=== PATIENT | female | born 1970 | race Caucasian/White ===

== ENCOUNTER 2017-02-17 12:32 | Emergency (ER) | payer SELFPAY ==
[2017-02-17 12:57] VITALS: BP 106/68
--- NOTE | 2017-02-17 13:37 | CR ---
EXAMINATION: Left knee HISTORY: Pain COMPARISON: None TECHNIQUE: 3 views FINDINGS: There is no acute osseous abnormality, dislocation, or fracture. There is a trace joint spa ce narrowing within the lateral compartment and patellofemoral compartment. There is a moderate joint effusion. Early osteophyte formation is noted. Bone mineralization appears normal to slightly osteop enic. IMPRESSION: Joint effusion and mild degenerative changes without a definite acute osseous abnormality .
--- NOTE | 2017-02-17 14:04 | EDM.PDOC ---
ED HPI GENERAL MEDICAL PROBLEM - General Chief Complaint: Lower Extremity Injury/Pain Stated Complaint: LEFT KNEE PAIN Time Seen by Provider: 02/17/17 12:47 Source of Information: Reports: Patient History Limitations: Reports: No Limitations - History of Present Illness INITIAL COMMENTS - FREE TEXT/NARRATIVE: HISTORY AND PHYSICAL: History of present illness: patient is a 46-year-old female whroom today wih complaints of left knee pain 1 year. He should states that approximately a year ago she started having left knee pain which was not precipitated by any injury, trauma or fall. She has no previous history of any knee surgery or problems. Patient states that she has used Ultram in the past with good pain relief but then states she also has not doctored specifically for her knee pain. She has recently moved here from [place] and does not have a primary care provider. Patient is fully ambulatory. Denies any numbness or tingling to the affected lower extremity. Denies any localized areas of redness or swelling to the affected extremity. No calf tenderness. No foot drop. Review of systems: As per history of present illness and below otherwise all systems reviewed and negative. Past medical history: As per history of present illness and as reviewed below otherwise noncontributory. Surgical history: As per history of present illness and as reviewed below otherwise noncontributory. Social history: No reported history of drug or alcohol abuse. Family history: As per history of present illness and as reviewed below otherwise noncontributory. Physical exam: General: well-developed and well- year old female. Able to speak in full sentences without shortness of breath. Alert and oriented. HEENT: Atraumatic, normocephalic, pupils reactive, negative for conjunctival pallor or scleral icterus, mucous membranes moist, throat clear, neck supple, nontender, trachea midline. Lungs: Clear to auscultation, breath sounds equal bilaterally, chest nontender. Heart: S1S2, regular rate and rhythm Abdomen: Soft, nondistended, nontender. Negative for masses. Negative for costovertebral tenderness. Pelvis: Stable nontender. Genitourinary: Deferred. Rectal: Deferred. Extremities: Atraumatic, negative for cords or calf pain. moves all extremities per self. Knee stability noted. Neurovascular unremarkable. Skin: Intact, warm, dry with no overt lesions or rashes. Neuro: Awake, alert, oriented. Cranial nerves II through XII unremarkable. Cerebellum unremarkable. Motor and sensory unremarkable throughout. Exam nonfocal. Diagnostics: Xray Therapeutics: Toby wrap declines crutches Impression: knee pain, left Plan: 1. please use the Toby wrap as directed. Declined crutches. 2. Use the Cataflam for daytime use. do not take additional NSAIDs such as ibuprofen or Aleve for using this medication. Take with food. You may take Tylenolfor breakthrough pain. Use the Tramadol for night time use only. 3. Follow-up with orthopedic provider as we discussed. Return to the ED as needed as discussed. Definitive disposition and diagnosis as appropriate pending reevaluation and review of above. Onset: Other (1 year) Left Knee Pain Score (Numeric/FACES): 6 - Related Data Allergies Allergy/AdvReac Type Severity Reaction Status Date / Time codeine Allergy Hives Verified 02/17/17 12:54 cortisone Allergy Hives Verified 02/17/17 12:54 Penicillins Allergy Hives Verified 02/17/17 12:54 Past Medical History Neurological History: Reports: Seizure - Past Surgical History Female Surgical History: Reports: Hysterectomy Social & Family History - Family History Family Medical History: Noncontributory - Tobacco Use Smoking Status *Q: Current Every Day Smoker Years of Tobacco use: 30 Packs/Tins Daily: 1 - Recreational Drug Use Recreational Drug Use: No Review of Systems - Review of Systems Review Of Systems: ROS reveals no pertinent complaints other than HPI. ED EXAM, GENERAL - Physical Exam Exam: See Below (See Dictation) Course - Vital Signs Last Recorded V/S: Last Vital Signs Temp 36.7 C 02/17/17 12:54 Pulse 70 02/17/17 12:54 Resp 18 02/17/17 12:54 BP 106/68 02/17/17 12:54 Pulse Ox 98 02/17/17 12:54 - Orders/Labs/Meds Orders: Active Orders 24 hr Category Date Time Status DME for Discharge [COMM] Stat Oth 02/17/17 14:05 Ordered Departure - Departure Time of Disposition: 14:04 Disposition: Home, Self-Care 01 Condition: Good Clinical Impression: Knee pain, chronic Qualifiers: Laterality: left Qualified Code(s): M25.562 - Pain in left knee - Discharge Information Referrals: PCP,None [Primary Care Provider] - Forms: ED Department Discharge Additional Instructions: My general discharge The following information is given to patients seen in the emergency department who are being discharged to home. This information is to outline your options for follow-up care. We provide all patients seen in our emergency department with a follow-up referral. The need for follow-up, as well as the timing and circumstances, are variable depending upon the specifics of your emergency department visit. If you don't have a primary care physician on staff, we will provide you with a referral. We always advise you to contact your personal physician following an emergency department visit to inform them of the circumstance of the visit and for follow-up with them and/or the need for any referrals to a consulting specialist. The emergency department will also refer you to a specialist when appropriate. This referral assures that you have the opportunity for follow-up care with a specialist. All of these measure are taken in an effort to provide you with optimal care, which includes your follow-up. Under all circumstances we always encourage you to contact your private physician who remains a resource for coordinating your care. When calling for follow-up care, please make the office aware that this follow-up is from your recent emergency room visit. If for any reason you are refused follow-up, please contact the [facility] Emergency Department at and asked to speak to the emergency department charge nurse. [facility] [address], [address] [place] [address] 1. please use the Toby wrap as directed. Declined crutches. 2. Use the Cataflam for daytime use. do not take additional NSAIDs such as ibuprofen or Aleve for using this medication. Take with food. You may take Tylenolfor breakthrough pain. Use the Tramadol for night time use only. 3. Follow-up with orthopedic provider as we discussed. Return to the ED as needed as discussed. - My Orders Last 24 Hours: My Active Orders 02/17/17 14:05 DME for Discharge [COMM] Stat - Assessment/Plan Last 24 Hours: My Active Orders 02/17/17 14:05 DME for Discharge [COMM] Stat
== END 2017-02-17 14:25 | disposition home or self-care (01) ==
LOC: MW.ED 12:32
DX: M25.562 Pain in left knee (principal); F17.210 Nicotine dependence, cigarettes, uncomplicated; Z90.710 Acquired absence of both cervix and uterus; Z88.0 Allergy status to penicillin; Z88.5 Allergy status to narcotic agent; Z88.8 Allergy status to other drugs, medicaments and biological substances; X58.XXXA Exposure to other specified factors, initial encounter
CPT/HCPCS: 73562-26-LT; 73562-LT; 99283